=== PATIENT | male | born 1990 | race Caucasian/White ===

== ENCOUNTER 2021-11-20 23:07 | Emergency (ER) | payer SELFPAY ==
[~2021-11-20] VITALS: Ht 188 cm; Wt 114.1 kg
[2021-11-21] MEDS ORDERED: ACETAMINOPHEN 325 MG TABLET PO ONE (02:00)
[2021-11-21 02:45] VITALS: BP 137/78
[2021-11-21] MEDS ORDERED: PERTUSS(ACELL),DIPH,TET VAC/PF 0.5 ML SYRINGE IM. ONE (02:45)
== END 2021-11-21 02:57 | disposition home or self-care (01) ==
LOC: EMS 23:10
DX: S61.216A Laceration without foreign body of right little finger without damage to nail, initial encounter (principal); F12.90 Cannabis use, unspecified, uncomplicated; W26.0XXA Contact with knife, initial encounter; Y93.89 Activity, other specified; Y92.89 Other specified places as the place of occurrence of the external cause; Y99.8 Other external cause status
CPT/HCPCS: 90471; 90715; 99283